=== PATIENT | female | born 1980 | race Two or more races ===

== ENCOUNTER 2017-02-27 20:09 | Emergency (ER) | payer MEDICAID ==
[~2017-02-27] VITALS: Ht 154.9 cm; Wt 56.7 kg
[2017-02-27] MEDS ORDERED: HYDROcodone-ACET 5/325MG TAB PO ONE (20:45)
[2017-02-27 21:30] VITALS: BP 130/82
== END 2017-02-27 23:13 | disposition home or self-care (01) ==
LOC: EDBD 20:09 → ER 20:20
DX: S16.1XXA Strain of muscle, fascia and tendon at neck level, initial encounter (principal); S39.012A Strain of muscle, fascia and tendon of lower back, initial encounter; S29.019A Strain of muscle and tendon of unspecified wall of thorax, initial encounter; S09.8XXA Other specified injuries of head, initial encounter; Y08.89XA Assault by other specified means, initial encounter; Y93.89 Activity, other specified; Y92.098 Other place in other non-institutional residence as the place of occurrence of the external cause; Y99.8 Other external cause status
CPT/HCPCS: 70450; 72125; 72128; 72131